=== PATIENT | female | born 2005 | race Two or more races ===

== ENCOUNTER 2024-11-16 21:53 | Emergency (ER) | payer BC, MEDICAID, SELFPAY ==
[2024-11-16 21:54] VITALS: BMI 31.1
[2024-11-16 22:56] VITALS: BP 120/81; PULSE 92; RESP 18; TEMP 36.9; O2SAT 99
--- NOTE | 2024-11-16 23:06 | PD.EDANIML ---
ED Animal Bite RME/HPI General Chief Complaint: Animal Bite Stated Complaint: DOG BITE LT ARM Time Seen by Provider: 11/16/24 22:59 Arrival date/time: 11/16/24 21:53 18F with no significant PMH presents to ED with L arm bite from her dog. Patient has not had a tetanus shot in the past 5 years. Limitations: no limitations Related Data Home Medications ?Medication ?Instructions ?Recorded ?Confirmed albuterol sulfate 0.63 mg/3 mL 0.63 mg IH PRN ##0 04/09/12 solution for nebulization beclomethasone dipropionate 80 1 puff inhalation BID ##0 04/09/12 mcg/actuation aerosol inhaler (Qvar) Previous Rx's ?Medication ?Instructions ?Recorded amoxicillin 875 mg-potassium 1 tab PO BID 7 days #14 tabs 11/16/24 clavulanate 125 mg tablet Allergies Allergy/AdvReac Type Severity Reaction Status Date / Time No Known Allergies Allergy Verified 07/02/22 13:23 Review of Systems Review of Systems Systems Reviewed: All systems reviewed, normal except as documented Integumentary/Breasts Skin/Breast: Reports as per HPI and Reports skin pain Past Medical History Social History SMOKING STATUS: Never smoker ED Exam General Limitations: Present no limitations General appearance: Present alert and in no apparent distress Head Head exam: Present atraumatic Neck Neck exam: Present normal inspection, full ROM and trachea midline Chest Chest inspection: Present normal inspection and symmetric chest wall rise Extremities Exam Extremities exam: Present full ROM Expanded Upper Extremity Exam Arm exam: Present full ROM and laceration (L several puncture wounds) Neurological Exam Neurological exam: Present alert and oriented X3 Psychiatric Psychiatric exam: Present normal affect and normal mood Skin Skin exam: Present warm, dry, intact and normal color Course Quality Measures none Orders Category Date Time Status Wound Care NOW Care 11/16/24 22:59 Active Amoxicillin/Pot Clav 875 [Augmentin 875] Med 11/16/24 22:59 Discontinued 1 tab PO X1 ONE TET,DIP/PERT AC (Adult)-Tdap [Boostrix Adult (Tdap) Med 11/16/24 22:59 Discontinued Vacc] 0.5 ml IMI .ONCE ONE Vital Signs Vital signs: Vital Signs Temperature 98.5 F 11/16/24 22:56 Pulse Rate 92 11/16/24 22:56 Respiratory Rate 18 11/16/24 22:56 Blood Pressure 120/81 11/16/24 22:56 Pulse Oximetry (%) 99 11/16/24 22:56 Oxygen Delivery Method Room Air 11/16/24 22:56 O2 at 99% on RA and WNLs Animal Bite MDM Narrative MDM Narrative:: 18F with no significant PMH presents to ED with L arm bite from her dog. Patient has not had a tetanus shot in the past 5 years. Physical exam reveals several puncture wounds on L arm. Patient is afebrile, calm, and alert. Wounds cleaned and bandaged. Tdap and ABX given. Patient data External records reviewed:: [facility] previous records Clinical information provided by:: patient Social determinants that could affect healthcare access:: none Patient has the following chronic illnesses:: none How is presenting disease/condition affected by chronic disease/condition?: no chronic disease Evaluation data The following diagnostics were reviewed and interpreted by me:: other (specify) (none) Lab and/or radiology exams considered but not ordered:: not ordered Interpretation Summary: n/a Medications / Prescriptions Medications or Prescriptions considered but not ordered:: ordered Medication administrations:: Medication Administration History Discontinued Medications Amoxicillin/Clavulanate Potassium (Amoxicillin/Pot Clav 875 Tablet) 1 tab PO X1 ONE Stop: 11/16/24 23:00 Diphtheria/Tetanus/Acell Pertussis (Diphth,Pertuss(Acell),Tet Vac 0.5 Ml Syr- Adult) 0.5 ml IMi .ONCE ONE Stop: 11/16/24 23:00 above Consultations Consultation(s) initiated? (list below): No Diagnosis Differential diagnosis animal bite: bite by animal, dog bite and rabies contact Most likely diagnosis given after review of the tests above:: dog bite Admission Indicated Admission indicated?: not indicated Admission Request Was there a request for admission?: No Disposition Plan Disposition Plan: Discharge Discharge Attestation Discharge Attestation: The patient and all family members were given an opportunity to ask questions and understood the discharge instructions. Discharge instructions specifically effects, indications for sooner follow up or return to the emergency department, and the expected course of current diagnosis. Patient condition: Stable Discharge Plan Plan Patient Disposition: HOME (Self Care) Discharge Disposition comment: STable Prescriptions/Referrals Prescriptions/Med Rec: New amoxicillin-pot clavulanate 875-125 mg tablet 1 tab PO BID 7 Days Qty: 14 0RF No Action albuterol sulfate 0.63 MG/3 ML solution for nebulization 0.63 mg IH PRN Qty: 0 beclomethasone dipropionate [Qvar] 7.3 GM aerosol 1 puff Inhalation BID Qty: 0 Problem List Clinical Impression: Dog bite Patient/Caregiver Discharge Instructions Education Materials: ED Dog Bite Additional Instructions: Please follow-up with PCP within 24-48 hours and return immediately if symptoms worsen. Print Language: German Stand Alone Forms: Patient Portal Info Letter PA/MACHINE FEEDER FLOORPERSON Supervising Physician CONNIE/AKOSUA Supervising Physician: Dr. Moore
[2024-11-16] MEDS: AMOXICILLIN/POT CLAV 875 TABLET 1 TAB PO (23:29)
[2024-11-16] MEDS: DIPHTH,PERTUSS(ACELL),TET VAC 0.5 ML SYR- ADULT IMi (23:30)
== END 2024-11-16 23:02 | disposition home or self-care (01) ==
PROVIDERS: Emergency Provider Emergency Medicine; PCP Family Medicine
DX: S41.152A Open bite of left upper arm, initial encounter (principal); W54.0XXA Bitten by dog, initial encounter; Z23 Encounter for immunization
CPT/HCPCS: 90471; 90715; 99284; A9270